=== PATIENT | female | born 1980 | race Caucasian/White ===

== ENCOUNTER 2017-04-05 06:25 | Inpatient (IN) | payer SELFPAY ==
[2017-04-05] VITALS (9 sets, daily range): BP systolic 93–147; BP diastolic 51–77; PULSE 75–139; RESP 15–20; TEMP 97.6–100.6; O2SAT 96–100
[~2017-04-05] VITALS: Ht 154.9 cm; Wt 62.0 kg
[~2017-04-05 06:25] MED LIST: CLIN150 PO; DOXY100T PO
[2017-04-05] MEDS ORDERED: SODIUM CHLOR 0.9% 1000 ML INJ 100 ML IV ONE (06:38)
[2017-04-05] MEDS ORDERED: SODIUM CHLOR 0.9% 1000 ML INJ 1,000 ML IV ONE ×2 (06:38)
[2017-04-05] MEDS ORDERED: IBUPROFEN 600 MG TAB PO ONE (06:45)
[2017-04-05] MEDS ORDERED: ONDANSETRON HCL 4 MG/2 ML VIAL ONE (06:54)
--- NOTE | 2017-04-05 06:57 | RADRPT ---
EXAM DATE/TIME: 04/05/2017 04:46 [place] COMPARISON: No previous studies available for comparison. INDICATIONS : Chest pain. MEDICAL HISTORY : None. SURGICAL HISTORY : None. ENCOUNTER: Initial ACUITY: 1 day PAIN SCORE: 8/10 LOCATION: Left upper chest FINDINGS: A single view of the chest demonstrates the lungs to be symmetrically aerated without evidence of mas s, infiltrate or effusion. The cardiomediastinal contours are unremarkable. Osseous structures are intact. CONCLUSION: No evidence of acute cardiopulmonary disease. Neymar Godoy MD on April 05, 2017 at 6:55 Board Certified Radiologist. This report was verified electronically.
[2017-04-05] MEDS ORDERED: ONDANSETRON HCL 4 MG/2 ML VIAL IV PUSH ONE (07:00)
[2017-04-05 07:24] LABS: AUTOMATED NEUTROPHIL # 12.6 TH/MM3 (1.8-7.7); BASOPHIL % 0.2 % (0.0-2.0); HEMATOCRIT 35.3 % (35.0-46.0); HEMO FLAGS DIFF FINAL; LYMPH % 4.6 % (9.0-44.0); LYMPHOCYTE # 0.7 TH/MM3 (1.0-4.8); MEAN CELL VOLUME 77.3 FL (80.0-100.0); MEAN CORPUSCULAR HEMOGLOBIN 25.3 PG (27.0-34.0); MEAN CORPUSCULAR HGB CONC 32.7 % (32.0-36.0); MONO % 5.3 % (0.0-8.0); NEUT % 89.9 % (16.0-70.0); PLATELET COUNT 265 TH/MM3 (150-450); RED BLOOD COUNT 4.57 MIL/MM3 (4.00-5.30); RED CELL DISTRIBUTION WIDTH 15.2 % (11.6-17.2); WHITE BLOOD COUNT 14.1 TH/MM3 (4.0-11.0)
[2017-04-05] MEDS ORDERED: MORPHINE SULFATE 4 MG/ML INJ IV PUSH ONE (07:30)
[2017-04-05] MEDS ORDERED: ACETAMINOPHEN 325 MG TAB PO ONE (07:30)
[2017-04-05 07:39] LABS: BLOOD, URINE NEG (NEG); GLUCOSE,URINE NEG (NEG); KETONE, URINE NEG (NEG); NITRITE,URINE NEG (NEG); PH, URINE 8.5 (5.0-8.5); URINE COLOR LIGHT-YELLOW (YELLW/STRAW)
[2017-04-05 07:43] LABS: ALT (GPT) 20 U/L (10-53); ANION GAP 9 MEQ/L (5-15); AST (GOT) 12 U/L (15-37); BICARBONATE 24.9 MEQ/L (21.0-32.0); BLOOD UREA NITROGEN 8 MG/DL (7-18); CHLORIDE 100 MEQ/L (98-107); GLOMERULAR FILTRATION RATE 123 ML/MIN (>89); MAGNESIUM 1.7 MG/DL (1.5-2.5); POTASSIUM 3.4 MEQ/L (3.5-5.1); SODIUM (NA) 134 MEQ/L (136-145)
[2017-04-05 07:45] LABS: COMMENT (UR) CATH-CULT NOT IND; CULTURE IF INDICATED CATH CULTURE NOT IND
[2017-04-05 07:48] LABS: ALKALINE PHOSPHATASE 107 U/L (45-117); BETA HCG QUANT LESS THAN 1 MIU/ML (0-5); TOTAL BILIRUBIN ADULT 0.4 MG/DL (0.2-1.0)
--- NOTE | 2017-04-05 07:53 | PD ---
HPI . Fever Chief Complaint: Pain: Acute or Chronic Time Seen by Provider: 07:10 Travel History International Travel<30 days: No Contact w/Intl Traveler<30days: No Traveled to known affect area: No History of Present Illness HPI This patient presents complaining with fever associated with nausea, vomiting, diarrhea and chest pain for the last 3 days. She states her symptoms became acutely worse last night. In addition, she has myalgias and insomnia. She states she last took a Tylenol approximately 4 hours prior to presentation. She states that it does help with the myalgias. The patient admits to a history of IV drug abuse and states that her last use was approximately 24 hours ago. She states that it is not unusual for her to go 24 hours between usages and that she does not normally developed withdrawal symptoms this quickly. She does not believe that her symptoms are related to withdrawal. She states that she has used since the onset of her symptoms with no change in the pattern of her symptoms. On review of systems, she admits to vaginal discharge and dyspareunia. PFSH Past Medical History Hx Anticoagulant Therapy: No Blood Disorders: No Cancer: No Cardiovascular Problems: No Chemotherapy: No Cerebrovascular Accident: No Diabetes: No Diminished Hearing: No Endocrine: No Gastrointestinal Disorders: No Genitourinary: No Immune Disorder: No Implanted Vascular Access Dvce: No Musculoskeletal: No Neurologic: No Psychiatric: No Reproductive: No Respiratory: No Immunizations Current: Yes ?: Not LMP: 03/22/17 : 6 Para: 2 Miscarriage: 1 : 3 Dilation and Curettage (D&C): Yes (X 1) Past Surgical History Hysterectomy: No Social History Alcohol Use: Yes (OCCASIONAL) Tobacco Use: Yes (1 PPD) Substance Use: Yes (heroin) Allergies-Medications (Allergen,Severity, Reaction): Coded Allergies: sulfamethoxazole (Unverified Allergy, Severe, RASH, 04/05/17) trimethoprim (Unverified Allergy, Severe, RASH, 04/05/17) Reported Meds & Prescriptions Reported Meds & Active Scripts Active No Active Prescriptions or Reported Medications Review of Systems Except as stated in HPI: all other systems reviewed are Neg General / Constitutional: Positive: Fever, Chills Gastrointestinal: Positive: Nausea, Vomiting, Diarrhea Musculoskeletal: Positive: Myalgias Psychiatric: Positive: Anxiety, Other (insomnia, inability to be still.) Physical Exam Narrative GENERAL: Patient is very agitated. She cannot be still. SKIN: warm/dry. HEAD: Normocephalic. Atraumatic. EYES: Pupils equal and round. No scleral icterus. No injection or drainage. ENT: No nasal bleeding or discharge. Mucous membranes pink and moist. NECK: Trachea midline. Full range of motion without pain.. CARDIOVASCULAR: Sinus tachycardia. No murmurs heard. RESPIRATORY: No accessory muscle use. Clear to auscultation. Breath sounds equal bilaterally. GASTROINTESTINAL: Abdomen soft. Nontender. Bowel sounds present. Nondistended. : Normal female external genitalia. Yellowish discharge in the vaginal vault. Os is closed. Positive cervical motion tenderness. Bilateral adnexal tenderness with no masses. MUSCULOSKELETAL: No obvious deformities. NEUROLOGICAL: Awake and alert. No obvious cranial nerve deficits. Motor grossly within normal limits. Normal speech. PSYCHIATRIC: Appropriate mood and affect; insight and judgment normal. Data Data Last Documented VS Vital Signs Date Time Temp Pulse Resp B/P (MAP) Pulse Ox O2 Delivery O2 Flow Rate FiO2 04/05/17 08:02 101 18 117/68 (84) 99 Room Air 04/05/17 06:26 100.6 Orders Orders Electrocardiogram (04/05/17 ) Sepsis Workup Initiated (04/05/17 ) Complete Blood Count With Diff (04/05/17 06:38) Comprehensive Metabolic Panel (04/05/17 06:38) Beta Hcg (Quant/Titer) (04/05/17 06:38) Lactic Acid Sepsis Protocol (04/05/17 06:38) Magnesium (Mg) (04/05/17 06:38) Ckmb (Isoenzyme) Profile (04/05/17 06:38) Troponin I (04/05/17 06:38) Urinalysis - C+S If Indicated (04/05/17 06:38) Influenzae A/B Antigen (04/05/17 06:38) Blood Culture (04/05/17 06:38) Chest, Single Ap (04/05/17 06:38) Ecg Monitoring (04/05/17 06:38) Iv Access Insert/Monitor (04/05/17 06:38) Oximetry (04/05/17 06:38) Ibuprofen (Motrin) (04/05/17 06:45) Sodium Chlor 0.9% 1000 Ml Inj (Ns 1000 M (04/05/17 06:38) Sodium Chlor 0.9% 1000 Ml Inj (Ns 1000 M (04/05/17 06:38) Sodium Chlor 0.9% 1000 Ml Inj (Ns 1000 M (04/05/17 06:38) Ed Urine Pregnancytest Poc (04/05/17 06:38) Ondansetron Inj (Zofran Inj) (04/05/17 07:00) Ondansetron Inj (Zofran Inj) (04/05/17 06:54) Acetaminophen (Tylenol) (04/05/17 07:30) Gc And Chlamydia Pcr (04/05/17 07:16) Wet Prep Profile (04/05/17 07:16) Morphine Inj (Morphine Inj) (04/05/17 07:30) Blood Culture (04/05/17 07:53) Ceftriaxone Inj (Rocephin Inj) (04/05/17 08:00) Prochlorperazine Inj (Compazine Inj) (04/05/17 08:15) Diphenhydramine Inj (Benadryl Inj) (04/05/17 08:15) Azithromycin Inj (Zithromax Inj) (04/05/17 08:15) Diet Regular Basic (04/05/17 Breakfast) Vital Signs (Adult) DONALD.Q4H (04/05/17 08:33) Acetaminophen (Tylenol) (04/05/17 08:45) Ondansetron Inj (Zofran Inj) (04/05/17 08:45) Admit Order (Ed Use Only) (04/05/17 ) Service Restorer Emergency / Telemetry DONALD.Q8H (04/05/17 08:34) Vital Signs (Adult) Q4H (04/05/17 08:34) Diet Heart Healthy (04/05/17 Breakfast) Activity Oob With Assistance (04/05/17 08:34) Notify Dr: Other (04/05/17 08:34) Labs Laboratory Tests Test 04/05/17 06:42 04/05/17 07:15 04/05/17 07:25 White Blood Count 14.1 TH/MM3 Red Blood Count 4.57 MIL/MM3 Hemoglobin 11.6 GM/DL Hematocrit 35.3 % Mean Corpuscular Volume 77.3 FL Mean Corpuscular Hemoglobin 25.3 PG Mean Corpuscular Hemoglobin Concent 32.7 % Red Cell Distribution Width 15.2 % Platelet Count 265 TH/MM3 Mean Platelet Volume 7.5 FL Neutrophils (%) (Auto) 89.9 % Lymphocytes (%) (Auto) 4.6 % Monocytes (%) (Auto) 5.3 % Eosinophils (%) (Auto) 0.0 % Basophils (%) (Auto) 0.2 % Neutrophils # (Auto) 12.6 TH/MM3 Lymphocytes # (Auto) 0.7 TH/MM3 Monocytes # (Auto) 0.7 TH/MM3 Eosinophils # (Auto) 0.0 TH/MM3 Basophils # (Auto) 0.0 TH/MM3 CBC Comment DIFF FINAL Differential Comment Blood Urea Nitrogen 8 MG/DL Creatinine 0.56 MG/DL Random Glucose 105 MG/DL Total Protein 8.6 GM/DL Albumin 3.7 GM/DL Calcium Level 8.7 MG/DL Magnesium Level 1.7 MG/DL Alkaline Phosphatase 107 U/L Aspartate Amino Transf (AST/SGOT) 12 U/L Alanine Aminotransferase (ALT/SGPT) 20 U/L Total Bilirubin 0.4 MG/DL Sodium Level 134 MEQ/L Potassium Level 3.4 MEQ/L Chloride Level 100 MEQ/L Carbon Dioxide Level 24.9 MEQ/L Anion Gap 9 MEQ/L Estimat Glomerular Filtration Rate 123 ML/MIN Lactic Acid Level 1.4 mmol/L Total Creatine Kinase 67 U/L Troponin I LESS THAN 0.02 NG/ML Human Chorionic Gonadotropin, Quant LESS THAN 1 MIU/ML Urine Color LIGHT-YELLOW Urine Turbidity CLEAR Urine pH 8.5 Urine Specific [place] 1.013 Urine Protein TRACE mg/dL Urine Glucose (UA) NEG mg/dL Urine Ketones NEG mg/dL Urine Occult Blood NEG Urine Nitrite NEG Urine Bilirubin NEG Urine Urobilinogen LESS THAN 2.0 MG/DL Urine Leukocyte Esterase NEG Urine RBC 1 /hpf Urine WBC 2 /hpf Microscopic Urinalysis Comment CATH-CULT NOT IND Clue Cells (Wet Prep) NONE SEEN Vaginal Trichomonas (Wet Prep) NONE SEEN Vaginal Yeast (Wet Prep) NONE SEEN MDM Medical Decision Making Medical Screen Exam Complete: Yes Emergency Medical Condition: Yes Medical Record Reviewed: Yes (patient was admitted here under very similar circumstances in June 2015. She was found to have a UTI. Psychiatry was consulted because of her agitated behavior. Psychiatry felt that her symptoms were due to polysubstance abuse. The patient later signed out AMA that same day.) Interpretation(s) EKG shows sinus tach at 113. No ST segment elevation or depression. Differential Diagnosis Differential diagnosis of fever includes but is not limited to viral illness, strep throat, otitis media, pneumonia, sepsis, UTI Narrative Course Septic workup is in progress. 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 I will give her 2 g of Rocephin while awaiting the rest of her workup. She is getting IV fluids. She's been given a dose of Motrin and Tylenol. Giving her a dose of morphine for possible withdrawal. Because of her history of IV drug abuse, I have added an additional 2 sets of blood cultures. Flu screen neg. CBC & BMP Diagram 04/05/17 06:42 Albumin 3.7, Calcium Level 8.7, Magnesium Level 1.7, Aspartate Amino Transf (AST /SGOT) 12 L, Alanine Aminotransferase (ALT/SGPT) 20 LA 1.4 HCG neg. UA neg. wet prep neg. Last Impressions Chest X-Ray 04/05/17 0638 Signed Impressions: Service Date/Time: , April 05, 2017 04:46 - CONCLUSION: No evidence of acute cardiopulmonary disease. Neymar Godoy MD The patient reports that she is willing to stay in the hospital for further evaluation and treatment. She just had an episode of emesis. She had a hearty been given a dose of Zofran. I have added a dose of Compazine/Benadryl. The most likely etiology for her fever continues to be HAND SCREEN PRINTER. In addition to Rocephin, I have added Zithromax. [facility] has been consulted for admission. Critical Care Narrative Aggregate critical care time was 45 minutes. Time to perform other separately billable procedures was not included in the critical care time. My time did not include minutes spent treating any other patients simultaneously or on activities that did not directly contribute to the patient's treatment. The services I provided to this patient were to treat and/or prevent clinically significant deterioration due to sepsis in an IV drug abuser. I provided critical care services requiring my management, as noted below: Chart data review, documentation time, medication orders and management, vital sign assessments/reviewing monitor data, ordering and reviewing lab tests, ordering and interpreting/reviewing x-rays and diagnostic studies, care of the patient and discussion of the patient with the admitting physicians Sepsis Criteria SIRS Criteria (2 or more): Heart rate over 90, WBC > 15109, < 4000 or > 10% bands Sepsis Criteria (SIRS+source): Infect source susp/known Criteria Outcome: Meets SIRS criteria, Meets sepsis criteria Physician Communication Physician Communication Dr. Mcdowell will admit. Diagnosis Primary Impression: Sepsis Qualified Codes: A41.9 - Sepsis, unspecified organism Additional Impression: PID (acute pelvic inflammatory disease) Admitting Information Admitting Physician Requests: Admit Scripts No Active Prescriptions or Reported Meds Condition: Stable Airam Banks MD Apr 05, 2017 07:53
[2017-04-05 07:57] LABS: CREATINE KINASE 67 U/L (26-192)
[2017-04-05] MEDS ORDERED: cefTRIAXone INJ 1,000 MG in SODIUM CHLORIDE 0.9% INJ 100 ML IV ONE (08:00)
[2017-04-05] MEDS ORDERED: PROCHLORPERAZINE INJ 10 MG/2 ML VIAL IV PUSH ONE (08:15)
[2017-04-05] MEDS ORDERED: diphenhydrAMINE HCL 50 MG/ML VIAL IV PUSH ONE (08:15)
[2017-04-05] MEDS ORDERED: AZITHROMYCIN INJ 500 MG in SODIUM CHLOR 0.9% 250 ML INJ 250 ML IV ONE (08:15)
[2017-04-05 10:25] LABS: CHLAMYDIA PCR NOT DETECTED (NOT DETECT); NEISSERIA PCR NOT DETECTED (NOT DETECT)
--- NOTE | 2017-04-05 10:25 | EKG ---
Date Performed: 04/05/2017 Time Performed: 06:47:47 PTAGE: 36 years EKG: SINUS TACHYCARDIA ABNORMAL RHYTHM ECG PREVIOUS TRACING : 06/20/2015 21.06 DOCTOR: Akash Squires Interpretating Date/Time 04/05/2017 10:23:31
[2017-04-05] MEDS: SODIUM CHLOR 0.9% 1000 ML INJ 1,000 ML IV SCH ×4 (11:00→19:40)
--- NOTE | 2017-04-05 11:28 | HHI.HP ---
HPI Service [facility] Primary Care Physician No Primary Care Physician Admission Diagnosis sepsis, PID, h/o IVDA Diagnoses: (1) SIRS (systemic inflammatory response syndrome) Diagnosis: Principal Chief Complaint: fever Travel History International Travel<30 Days: No Contact w/Intl Traveler <30 Da: No Traveled to Known Affected Are: No Sepsis Criteria SIRS Criteria (2 or more): Heart rate over 90, WBC > 99302, < 4000 or > 10% bands Criteria Outcome: Meets SIRS criteria History of Present Illness patient is a 36 y/o female, IV drug abuser, who presented to ER with fever. she says that it's been going on for the past three days. she says that she took tylenol but with no improvement. the highest fever that she reports is 103. although she had a fever of 100.6 at the time of presentation. she says that she had some nausea and vomiting. she had diarrhea for one day which she says that a couple of times ' was bloody'. she had mild abdominal pain. she reports vaginal discharge which she says was ' whitish and grayish' along with some itching. she denies any cough, sob or urinary complaints. she says that she's using IV drugs few times a week and the last time was yesterday. she's not sexually active and she says that she was tested for HIV years ago which was negative. she's restless at the time of my evaluation. Review of Systems Constitutional: COMPLAINS OF: Fever, DENIES: Weight loss, Chills, Night Sweats Eyes: DENIES: Blurred vision, Diplopia, Vision loss, Double Vision Ears, nose, mouth, throat: DENIES: Tinnitus, Vertigo, Throat pain, Epistaxis Respiratory: DENIES: Apneas, Cough, Snoring, Wheezing, Hemoptysis, Sputum production, Shortness of breath Cardiovascular: DENIES: Chest pain, Palpitations, Syncope, Dyspnea on Exertion , PND, Lower Extremity Edema, Orthopnea, Claudication Gastrointestinal: COMPLAINS OF: Diarrhea, Nausea, DENIES: Abdominal pain, Black stools, Bloody stools, Constipation, Vomiting, Difficulty Swallowing, Anorexia Genitourinary: DENIES: Urinary frequency, Urgency, Hematuria, Dysuria Musculoskeletal: DENIES: Joint pain, Muscle aches, Stiffness, Joint Swelling Integumentary: DENIES: Rash Neurologic: DENIES: Abnormal gait, Headache, Localized weakness, Paresthesias, Seizures, Speech Problems, Tremor, Poor Balance Psychiatric: DENIES: Anxiety, Confusion, Mood changes, Depression, Hallucinations, Agitation, Suicidal Ideation, Homicidal Ideation, Delusions Past Family Social History Past Medical History none reported. Past Surgical History I/D of a boil years ago. Reported Medications none reported. Allergies: Coded Allergies: sulfamethoxazole (Unverified Allergy, Severe, RASH, 04/05/17) trimethoprim (Unverified Allergy, Severe, RASH, 04/05/17) Active Ordered Medications Current Medications Ibuprofen (Motrin) 600 mg ONCE ONCE PO Last administered on 04/05/17 06:56; Start 04/05/17 at 06:45; Stop 04/05/17 at 06:46; Status DC Sodium Chloride 1,000 ml @ 1,000 mls/hr Q1H ONCE IV Last administered on 04/05 06:56; Start 04/05/17 at 06:38; Stop 04/05/17 at 07:37; Status DC Sodium Chloride 1,000 ml @ 1,000 mls/hr Q1H ONCE IV Last administered on 04/05 06:56; Start 04/05/17 at 06:38; Stop 04/05/17 at 07:37; Status DC Sodium Chloride 100 ml @ 1,000 mls/hr Q6M ONCE IV Last administered on 06:56; Start 04/05/17 at 06:38; Stop 04/05/17 at 06:43; Status DC Ondansetron HCl (Zofran Inj) 4 mg ONCE ONCE IV PUSH Last administered on 04/05 06:57; Start 04/05/17 at 07:00; Stop 04/05/17 at 07:01; Status DC Ondansetron HCl (Zofran Inj) 4 mg STK-MED ONCE .ROUTE ; Start 04/05/17 at 06:54 ; Stop 04/05/17 at 06:55; Status DC Acetaminophen (Tylenol) 650 mg ONCE ONCE PO Last administered on 04/05/17 07 :58; Start 04/05/17 at 07:30; Stop 04/05/17 at 07:31; Status DC Morphine Sulfate (Morphine Inj) 4 mg ONCE ONCE IV PUSH Last administered on 07:59; Start 04/05/17 at 07:30; Stop 04/05/17 at 07:31; Status DC Ceftriaxone Sodium 1000 mg/ Sodium Chloride 100 ml @ 200 mls/hr ONCE ONCE IV Last administered on 04/05/17 08:07; Start 04/05/17 at 08:00; Stop 04/05/17 at 08:29; Status DC Prochlorperazine Edisylate (Compazine Inj) 10 mg ONCE ONCE IV PUSH Last administered on 04/05/17 08:06; Start 04/05/17 at 08:15; Stop 04/05/17 at 08 :16; Status DC Diphenhydramine HCl (Benadryl Inj) 25 mg ONCE ONCE IV PUSH Last administered on 04/05/17 08:06; Start 04/05/17 at 08:15; Stop 04/05/17 at 08:16; Status DC Azithromycin 500 mg/Sodium Chloride 250 ml @ 250 mls/hr ONCE ONCE IV Last administered on 04/05/17 09:00; Start 04/05/17 at 08:15; Stop 04/05/17 at 09 :14; Status DC Acetaminophen (Tylenol) 650 mg Q4H PRN PO FEVER/PAIN; Start 04/05/17 at 08:45 Ondansetron HCl (Zofran Inj) 4 mg Q8HR PRN IV PUSH NAUSEA; Start 04/05/17 at 08:45 Social History smokes half a pack a day- doesn't drink. uses IV heroin. Physical Exam Vital Signs Vital Signs Date Time Temp Pulse Resp B/P (MAP) Pulse Ox O2 Delivery O2 Flow Rate FiO2 04/05/17 09:50 04/05/17 09:35 94 15 115/59 (77) 99 Room Air 04/05/17 09:04 98.7 103 15 97/51 (66) 99 Room Air 04/05/17 08:02 101 18 117/68 (84) 99 Room Air 04/05/17 06:47 100 Room Air 04/05/17 06:26 100.6 139 20 147/77 (100) 96 Room Air Physical Exam GENERAL: somewhat restless, in no apparent distress. SKIN: No rashes, ecchymoses or lesions. Cool and dry. HEAD: Atraumatic. Normocephalic. No temporal or scalp tenderness. EYES: Pupils equal round and reactive. Extraocular motions intact. No scleral icterus. No injection or drainage. ENT: Nose without bleeding, purulent drainage or septal hematoma. Throat without erythema, tonsillar hypertrophy or exudate. Uvula midline. Airway patent. NECK: Trachea midline. No JVD or lymphadenopathy. Supple, nontender, no meningeal signs. CARDIOVASCULAR: Regular rate and rhythm without murmurs, gallops, or rubs. RESPIRATORY: Clear to auscultation. Breath sounds equal bilaterally. No wheezes , rales, or rhonchi. GASTROINTESTINAL: Abdomen soft, non-tender, nondistended. No hepato-splenomegaly , or palpable masses. No guarding. MUSCULOSKELETAL: Extremities without clubbing, cyanosis, or edema. No joint tenderness, effusion, or edema noted. No calf tenderness. Negative Homans sign bilaterally. NEUROLOGICAL: Awake and alert. Cranial nerves II through XII intact. Motor and sensory grossly within normal limits. Five out of 5 muscle strength in all muscle groups. Normal speech. Laboratory Laboratory Tests Test 04/05/17 06:42 04/05/17 07:15 04/05/17 07:25 White Blood Count 14.1 Red Blood Count 4.57 Hemoglobin 11.6 Hematocrit 35.3 Mean Corpuscular Volume 77.3 Mean Corpuscular Hemoglobin 25.3 Mean Corpuscular Hemoglobin Concent 32.7 Red Cell Distribution Width 15.2 Platelet Count 265 Mean Platelet Volume 7.5 Neutrophils (%) (Auto) 89.9 Lymphocytes (%) (Auto) 4.6 Monocytes (%) (Auto) 5.3 Eosinophils (%) (Auto) 0.0 Basophils (%) (Auto) 0.2 Neutrophils # (Auto) 12.6 Lymphocytes # (Auto) 0.7 Monocytes # (Auto) 0.7 Eosinophils # (Auto) 0.0 Basophils # (Auto) 0.0 CBC Comment DIFF FINAL Differential Comment Blood Urea Nitrogen 8 Creatinine 0.56 Random Glucose 105 Total Protein 8.6 Albumin 3.7 Calcium Level 8.7 Magnesium Level 1.7 Alkaline Phosphatase 107 Aspartate Amino Transf (AST/SGOT) 12 Alanine Aminotransferase (ALT/SGPT) 20 Total Bilirubin 0.4 Sodium Level 134 Potassium Level 3.4 Chloride Level 100 Carbon Dioxide Level 24.9 Anion Gap 9 Estimat Glomerular Filtration Rate 123 Lactic Acid Level 1.4 Total Creatine Kinase 67 Troponin I LESS THAN 0.02 Human Chorionic Gonadotropin, Quant LESS THAN 1 Urine Color LIGHT-YELLOW Urine Turbidity CLEAR Urine pH 8.5 Urine Specific [place] 1.013 Urine Protein TRACE Urine Glucose (UA) NEG Urine Ketones NEG Urine Occult Blood NEG Urine Nitrite NEG Urine Bilirubin NEG Urine Urobilinogen LESS THAN 2.0 Urine Leukocyte Esterase NEG Urine RBC 1 Urine WBC 2 Microscopic Urinalysis Comment CATH-CULT NOT IND Clue Cells (Wet Prep) NONE SEEN Vaginal Trichomonas (Wet Prep) NONE SEEN Vaginal Yeast (Wet Prep) NONE SEEN Chlamydia trachomatis DNA (PCR) NOT DETECTED Neisseria gonorrhoeae DNA (PCR) NOT DETECTED Date/Time Source Procedure Growth Status 04/05/17 08:10 Blood Peripheral Aerobic Blood Culture Pending Received 04/05/17 08:10 Blood Peripheral Anaerobic Blood Culture Pending Received 04/05/17 06:40 Nasal Aspirate Influenza Types A,B Antigen (WINSOME) - Final NEGATIVE FOR FLU A AND B ANTIGEN.... Complete Result Diagram: 04/05/1764104/05/1742 Imaging Last Impressions Chest X-Ray 04/05/17637 Signed Impressions: Service Date/Time: , April 05, 2017 04:46 - CONCLUSION: No evidence of acute cardiopulmonary disease. MD Rosalba Littlejohni VTE Risk Assessment Caprini VTE Risk Assessment: No/Low Risk (score <= 1) Caprini Risk Assessment Model Point Value = 1 Point Value = 2 Point Value = 3 Point Value = 5 Age 41-60 Minor surgery BMI > 25 kg/m2 Swollen legs Varicose veins or History of unexplained or recurrent spontaneous Oral contraceptives or hormone replacement Sepsis (< 1 month) Serious lung disease, including pneumonia (< 1 month) Abnormal pulmonary function Acute myocardial infarction Congestive heart failure (< 1 month) History of inflammatory bowel disease Medical patient at bed rest Age 61-74 Arthroscopic surgery Major open surgery (> 45 min) Laparoscopic surgery (> 45 min) Malignancy Confined to bed (> 72 hours) Immobilizing plaster cast Central venous access Age >= 75 History of VTE Family history of VTE Factor V Leiden Prothrombin [id number] Lupus anticoagulant Anticardiolipin antibodies Elevated serum homocysteine Heparin-induced thrombocytopenia Other congenital or acquired thrombophilia Stroke (< 1 month) Elective arthroplasty Hip, pelvis, or leg fracture Acute spinal cord injury (< 1 month) Prophylaxis Regimen Total Risk Factor Score Risk Level Prophylaxis Regimen 0-1 Low Early ambulation 2 Moderate Order ONE of the following: *Sequential Compression Device (SCD) *Heparin 5000 units SQ BID 3-4 Higher Order ONE of the following medications: *Heparin 5000 units SQ TID *Enoxaparin/Lovenox 40 mg SQ daily (WT < 150 kg, CrCl > 30 mL/min) *Enoxaparin/Lovenox 30 mg SQ daily (WT < 150 kg, CrCl > 10-29 mL/min) *Enoxaparin/Lovenox 30 mg SQ BID (WT < 150 kg, CrCl > 30 mL/min) AND/OR *Sequential Compression Device (SCD) 5 or more Highest Order ONE of the following medications: *Heparin 5000 units SQ TID (Preferred with Epidurals) *Enoxaparin/Lovenox 40 mg SQ daily (WT < 150 kg, CrCl > 30 mL/min) *Enoxaparin/Lovenox 30 mg SQ daily (WT < 150 kg, CrCl > 10-29 mL/min) *Enoxaparin/Lovenox 30 mg SQ BID (WT < 150 kg, CrCl > 30 mL/min) AND *Sequential Compression Device (SCD) Assessment and Plan Assessment and Plan A/P - SIRS ( fever/ tachycardia/leukocytosis) in a patient with IV drug abuse negative PCR for Chlamydia/ N. Gonorrhea . CXR and UA negative. received a dose of IV Rocephin and Zithromax in ER- no antibiotics for now- will follow the temps and the blood cultures. will check ESR, HIV screening and consult ID. -IV drug abuser ( uses Heroin); supportive care with IV fluid- watch for withdrawal - start diazepam as needed for restlessness/ anxiety. -mild hypokalemia; will replace -DVT prophylaxis; with early ambulation Discussed Condition With ER physician and the patient. Physician Certification 2 Midnight Certification Type: Admission for Inpatient Services Order for Inpatient Services The services are ordered in accordance with Medicare regulations or non- Medicare payer requirements, as applicable. In the case of services not specified as inpatient-only, they are appropriately provided as inpatient services in accordance with the 2-midnight benchmark. Estimated LOS (days): 2 days is the estimated time the patient will need to remain in the hospital, assuming treatment plan goals are met and no additional complications. Post-Hospital Plan: Home Fabien Mcdowell MD Apr 05, 2017 11:28
[2017-04-05] MEDS ORDERED: POTASSIUM CHLORIDE 20 MEQ CONTROLLED RELEASE TAB PO ONE (11:30)
[2017-04-05] MEDS: DIAZEPAM 2 MG TAB PO PRN ×2 (13:50→21:56)
[2017-04-05] MEDS: ONDANSETRON HCL 4 MG/2 ML VIAL IV PUSH PRN (13:51)
[2017-04-05] MEDS: ACETAMINOPHEN 325 MG TAB PO PRN ×2 (13:51→19:40)
--- NOTE | 2017-04-05 15:15 | PD.ID.CON ---
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 She reports using 500$ worth of Heroin IV every day and last use was 1 ay prior to admission. She presents to the ED with fever for the last 3 days. She says that she took tylenol but with no improvement. The highest fever that she reports is 103. She says that she had some nausea and vomiting. She had diarrhea for one day which she says that a couple of times ' was bloody'. She had mild abdominal pain. She reports vaginal discharge which she says was ' whitish and grayish' along with some itching. She denies any cough, sob or urinary complaints. Patient reports she thinks she is withdrawing and was restless rosette legs at time of my visit. She thinks valium not helping her. She denies any back pain, BB incontinence. She denies any LE weakness She denies any CP symptoms She consented to HIV and STD screen and reports she has been tested positive for GC and Chlam in past treated. ? Syphylis but she is not sure. ID consulted for fever in patient with IVDA. Review of Systems ROS Limitations: Poor Historian Constitutional: COMPLAINS OF: Diaphoretic episodes, Fever, DENIES: Fatigue, Weight gain, Weight loss, Chills, Dizziness, Change in appetite, Night Sweats Endocrine: DENIES: Abnorml menstrual pattern, Heat/cold intolerance, Polydipsia , Polyuria, Polyphagia Eyes: DENIES: Blurred vision, Diplopia, Eye inflammation, Eye pain, Vision loss , Photosensitivity, Double Vision Ears, nose, mouth, throat: DENIES: Tinnitus, Hearing loss, Vertigo, Nasal discharge, Oral lesions, Throat pain, Hoarseness, Ear Pain, Running Nose, Epistaxis, Sinus Pain, Toothache, Odynophagia Respiratory: DENIES: Apneas, Cough, Snoring, Wheezing, Hemoptysis, Sputum production, Shortness of breath Cardiovascular: DENIES: Chest pain, Palpitations, Syncope, Dyspnea on Exertion , PND, Lower Extremity Edema, Orthopnea, Claudication Gastrointestinal: DENIES: Abdominal pain, Black stools, Bloody stools, Constipation, Diarrhea, Nausea, Vomiting, Difficulty Swallowing, Anorexia Genitourinary: DENIES: Abnormal vaginal bleeding, Dysmenorrhea, Dyspareunia, Sexual dysfunction, Urinary frequency, Urinary incontinence, Urgency, Hematuria , Dysuria, Nocturia, Vaginal discharge Musculoskeletal: COMPLAINS OF: Muscle aches, DENIES: Joint pain, Stiffness, Joint Swelling, Back pain, Neck pain Integumentary: DENIES: Abnormal pigmentation, Pruritus, Rash, Nail changes, Breast masses, Breast skin changes, Nipple discharge Hematologic/lymphatic: DENIES: Bruising, Lymphadenopathy Immunologic/allergic: DENIES: Eczema, Urticaria Neurologic: DENIES: Abnormal gait, Headache, Localized weakness, Paresthesias, Seizures, Speech Problems, Tremor, Poor Balance Psychiatric: DENIES: Anxiety, Confusion, Mood changes, Depression, Hallucinations, Agitation, Suicidal Ideation, Homicidal Ideation, Delusions Except as stated in HPI: all other systems reviewed are Neg Past Family Social History Allergies: Coded Allergies: sulfamethoxazole (Unverified Allergy, Severe, RASH, 04/05/17) trimethoprim (Unverified Allergy, Severe, RASH, 04/05/17) Past Medical History STDs Chlamydia, GC treated. Possibly Syphylis she is not sure Worked up for endocarditis but not treated with IV Abx multiple skin abscesses from skin popping. IVDA heroin Past Surgical History I&Ds of abscesses. Reported Medications Reported Meds & Active Scripts Active No Active Prescriptions or Reported Medications Active Ordered Medications Current Medications Medications (Trade) Dose Ordered Sig/Deneen Route Start Time Stop Time Status Last Admin (Tylenol) 650 mg Q4H PRN PO 04/05/17 08:45 04/05/17 13:51 (Zofran Inj) 4 mg Q8HR PRN IV PUSH 04/05/17 08:45 04/05/17 13:51 Sodium Chloride 1,000 ml @ 125 mls/hr Q8H IV 04/05/17 11:00 Sodium Chloride 1,000 ml @ 125 mls/hr Q8H IV 04/05/17 11:30 04/05/17 11:30 (Valium) 2 mg Q8HR PRN PO 04/05/17 11:30 04/05/17 13:50 Family History She reports her parents are well to do and live in [place] but she does not get along with them. Her grandfather is involved in her care. She has a boyfriend she lives with who reportedly is sober. She has 17 yr old daughter in [place] and a 6 yr old child who lives with her. A family friend visited her and reportedly her parents send her money through this friend and he is source of money for her IVDA habits. Social History IVDA heroin, social alcohol, lives with boyfriend. Physical Exam Vital Signs Vital Signs Date Time Temp Pulse Resp B/P (MAP) Pulse Ox O2 Delivery O2 Flow Rate FiO2 04/05/17 12:00 98.7 90 18 97/55 (69) 98 04/05/17 09:50 04/05/17 09:35 94 15 115/59 (77) 99 Room Air 04/05/17 09:04 98.7 103 15 97/51 (66) 99 Room Air 04/05/17 08:02 101 18 117/68 (84) 99 Room Air 04/05/17 06:47 100 Room Air 04/05/17 06:26 100.6 139 20 147/77 (100) 96 Room Air Physical Exam GENERAL: This is a well-nourished, well-developed patient, in no apparent distress. SKIN: Multiple cords and track grijalva noted. Scars from prior skin popping noted. HEAD: Atraumatic. Normocephalic. No temporal or scalp tenderness. EYES: Pupils equal round and reactive. Extraocular motions intact. No scleral icterus. No injection or drainage. ENT: Nose without bleeding, purulent drainage or septal hematoma. Throat without erythema, tonsillar hypertrophy or exudate. Uvula midline. Airway patent. NECK: Trachea midline. No JVD or lymphadenopathy. Supple, nontender, no meningeal signs. CARDIOVASCULAR: Regular rate and rhythm without murmurs, gallops, or rubs. RESPIRATORY: Clear to auscultation. Breath sounds equal bilaterally. No wheezes , rales, or rhonchi. GASTROINTESTINAL: Abdomen soft, non-tender, nondistended. No hepato-splenomegaly , or palpable masses. No guarding. MUSCULOSKELETAL: Extremities without clubbing, cyanosis, or edema. No joint tenderness, effusion, or edema noted. No calf tenderness. Negative Homans sign bilaterally. NEUROLOGICAL: Awake and alert. Cranial nerves II through XII intact. Motor and sensory grossly within normal limits. Five out of 5 muscle strength in all muscle groups. Normal speech. Psych cooperative IV line sites with no e.o infection Laboratory Laboratory Tests Test 04/05/17 06:42 04/05/17 07:15 04/05/17 07:25 04/05/17 12:15 White Blood Count 14.1 Red Blood Count 4.57 Hemoglobin 11.6 Hematocrit 35.3 Mean Corpuscular Volume 77.3 Mean Corpuscular Hemoglobin 25.3 Mean Corpuscular Hemoglobin Concent 32.7 Red Cell Distribution Width 15.2 Platelet Count 265 Mean Platelet Volume 7.5 Neutrophils (%) (Auto) 89.9 Lymphocytes (%) (Auto) 4.6 Monocytes (%) (Auto) 5.3 Eosinophils (%) (Auto) 0.0 Basophils (%) (Auto) 0.2 Neutrophils # (Auto) 12.6 Lymphocytes # (Auto) 0.7 Monocytes # (Auto) 0.7 Eosinophils # (Auto) 0.0 Basophils # (Auto) 0.0 CBC Comment DIFF FINAL Differential Comment Blood Urea Nitrogen 8 Creatinine 0.56 Random Glucose 105 Total Protein 8.6 Albumin 3.7 Calcium Level 8.7 Magnesium Level 1.7 Alkaline Phosphatase 107 Aspartate Amino Transf (AST/SGOT) 12 Alanine Aminotransferase (ALT/SGPT) 20 Total Bilirubin 0.4 Sodium Level 134 Potassium Level 3.4 Chloride Level 100 Carbon Dioxide Level 24.9 Anion Gap 9 Estimat Glomerular Filtration Rate 123 Lactic Acid Level 1.4 Total Creatine Kinase 67 Troponin I LESS THAN 0.02 Human Chorionic Gonadotropin, Quant LESS THAN 1 Urine Color LIGHT-YELLOW Urine Turbidity CLEAR Urine pH 8.5 Urine Specific Frontier 1.013 Urine Protein TRACE Urine Glucose (UA) NEG Urine Ketones NEG Urine Occult Blood NEG Urine Nitrite NEG Urine Bilirubin NEG Urine Urobilinogen LESS THAN 2.0 Urine Leukocyte Esterase NEG Urine RBC 1 Urine WBC 2 Microscopic Urinalysis Comment CATH-CULT NOT IND Clue Cells (Wet Prep) NONE SEEN Vaginal Trichomonas (Wet Prep) NONE SEEN Vaginal Yeast (Wet Prep) NONE SEEN Chlamydia trachomatis DNA (PCR) NOT DETECTED Neisseria gonorrhoeae DNA (PCR) NOT DETECTED Erythrocyte Sedimentation Rate 49 Date/Time Source Procedure Growth Status 04/05/17 08:10 Blood Peripheral Aerobic Blood Culture Pending Received 04/05/17 08:10 Blood Peripheral Anaerobic Blood Culture Pending Received 04/05/17 06:40 Nasal Aspirate Influenza Types A,B Antigen (WINSOME) - Final NEGATIVE FOR FLU A AND B ANTIGEN.... Complete Result Diagram: 04/05/1764104/05/17641 Imaging Last Impressions Chest X-Ray 04/05/1738 Signed Impressions: Service Date/Time: March 04:46 - CONCLUSION: No evidence of acute cardiopulmonary disease. Neymar Godoy MD Assessment and Plan Assessment and Plan Fever in an IVDA: 1. Rule out endocarditis or bacteremia 2. Thrombophlebitis forearm veins from IVDA 3. Rule out HIV and other STDs as cause of fever. 4. Heroin withdrawal IVDA uses lot of heroin Prior skin abscesses s.p I&D Recs Continue to observe off antibiotics. If spikes fevers obtain stat cultures during bacteremic phase. If blood cultures positive or persistent fevers she will need endocarditis workup. If any change in clinical condition overnight start IV Zosyn and Vanco IV. Currently no fevers, no obvious source of infection. Appears to be in withdrawal management per primary. Follow HIV Check Hepatitis panel. STD screen including RPR. D.w patient Move pt closer to nurses station. Visitors to check in and check belongings with RN or decision unit rn If blood cultures remain negative at 72 hours no further workup for endocarditis and ok to DC patient rosette if no fevers. Please call me prior to discharge if above conditions met to review clinically and data. Yovana Siddiqi MD Apr 05, 2017 15:15
[2017-04-06] VITALS: BP 94/64; PULSE 73; RESP 18; TEMP 96.6; O2SAT 98
[2017-04-06 01:40] VITALS: PULSE 86
[2017-04-06] MEDS: SODIUM CHLOR 0.9% 1000 ML INJ 1,000 ML IV SCH ×2 (03:00→05:11)
[2017-04-06] MEDS: ACETAMINOPHEN 325 MG TAB PO PRN ×2 (03:36→09:11)
[2017-04-06 04:00] VITALS: BP 98/63; PULSE 71; RESP 17; TEMP 96.6; O2SAT 98
[2017-04-06] MEDS: DIAZEPAM 2 MG TAB PO PRN (05:10)
[2017-04-06 06:05] LABS: AUTOMATED NEUTROPHIL # 2.7 TH/MM3 (1.8-7.7); BASOPHIL # 0.1 TH/MM3 (0-0.2); BASOPHIL % 1.2 % (0.0-2.0); EOSINOPHIL # 0.1 TH/MM3 (0-0.4); EOSINOPHIL % 2.2 % (0.0-4.0); HEMO FLAGS DIFF FINAL; LYMPH % 32.1 % (9.0-44.0); LYMPHOCYTE # 1.6 TH/MM3 (1.0-4.8); MEAN CELL VOLUME 78.5 FL (80.0-100.0); MEAN CORPUSCULAR HEMOGLOBIN 25.8 PG (27.0-34.0); MEAN CORPUSCULAR HGB CONC 32.9 % (32.0-36.0); MONO % 9.5 % (0.0-8.0); PLATELET COUNT 234 TH/MM3 (150-450); RED BLOOD COUNT 3.94 MIL/MM3 (4.00-5.30); RED CELL DISTRIBUTION WIDTH 15.7 % (11.6-17.2); WHITE BLOOD COUNT 4.9 TH/MM3 (4.0-11.0)
[2017-04-06 06:37] LABS: BICARBONATE 24.5 MEQ/L (21.0-32.0); POTASSIUM 3.5 MEQ/L (3.5-5.1)
[2017-04-06 08:00] VITALS: BP 104/67; PULSE 71; RESP 16; TEMP 97.3; O2SAT 99
[2017-04-06] MEDS: ONDANSETRON HCL 4 MG/2 ML VIAL IV PUSH PRN (09:12)
--- NOTE | 2017-04-06 10:51 | PD.AMA ---
Against Medical Advice Note Diagnosis: (1) SIRS (systemic inflammatory response syndrome) (2) Sepsis (3) Polysubstance dependence including opioid type drug, episodic abuse (4) Withdrawal symptoms, drug or narcotic (5) Drug abuse (6) Opiate dependence Discharge Disposition: Against Medical Advice Pt Condition on Discharge: Fair Recommended Treatment Course Expect to see her back in the near future AMA Statement Patient Luc Yepez has decided to leave the hospital against medical advice. This patient has the capacity to refuse care and understands the risks of leaving, including permanent disability and/or , and has had an opportunity to ask questions about her condition. The patient has been informed that she may return for care at any time, and follow up has been arranged/advised. Mo Gentile DO Apr 06, 2017 10:51
== END 2017-04-06 10:31 | disposition left against medical advice (07) | DRG 872 ==
LOC: NEPE 06:25 → NEDA 08:38 → N07A 09:49
PROVIDERS: ADMIT Hospitalist; ATTEND Hospitalist
DX: A41.9 Sepsis, unspecified organism (principal); I80.8 Phlebitis and thrombophlebitis of other sites; N73.0 Acute parametritis and pelvic cellulitis; F11.23 Opioid dependence with withdrawal; F19.10 Other psychoactive substance abuse, uncomplicated; F17.210 Nicotine dependence, cigarettes, uncomplicated; E87.6 Hypokalemia; G47.00 Insomnia, unspecified; N94.10 Unspecified dyspareunia
CPT/HCPCS: 71010; 80048; 80053; 80074; 81001; 82550; 83605; 83735; 84484; 84702; 84703; 85025; 85652; 86703; 87040; 87210; 87491; 87591; 87804; 93005; 96361; 96365; 96375; J0456; J0696; J0780; J1200; J2270; J2405; J7030; J7050